=== PATIENT | male | born 1945 | race Caucasian/White ===

== ENCOUNTER 2021-08-10 09:55 | Inpatient (IN) | payer MEDICARE ==
[2021-08-10] MEDS ORDERED: Acetaminophen 325 MG TAB PO PRN (18:14)
[2021-08-10] MEDS ORDERED: Ondansetron PF 4 MG/2 ML Vial IVP PRN (18:14)
[2021-08-10] MEDS ORDERED: Nitroglycerin 0.4 MG TAB (25 Tab Bottle) SL PRN (18:21)
[2021-08-10] MEDS ORDERED: traZODone HCl 50 MG TAB PO PRN (18:21)
[2021-08-10] MEDS ORDERED: HYDROcodone/Acetaminophen 10/325 mg Tablet PO PRN (18:26)
[2021-08-10] MEDS: Senokot S 8.6-50 MG TAB PO SCH (21:14)
[2021-08-10] MEDS: Tamsulosin HCl 0.4 MG CAP PO SCH (21:14)
[2021-08-10] MEDS: Atorvastatin Calcium 40 MG TAB PO SCH (21:14)
[2021-08-10] MEDS: ALPRAZolam 0.25 MG TAB PO PRN (21:14)
[2021-08-11 03:59] LABS: #Eosinphils 0.1 thou/uL (0.0-0.7); #Lymphocytes 1.9 thou/uL (1.20-3.40); #Monocytes 0.9 thou/uL (0.11-0.59); #Neutrophils 4.4 thou/uL (1.40-6.50); %Basophils 0.1 % (0.0-1.0); %Lymphocytes 25.9 % (21.0-51.0); %Monocytes 11.8 % (0.0-10.0); %Neutrophils 61.2 % (42.0-75.0); Hemoglobin 13.6 g/dL (14.0-18.0); Mean Corpuscular HGB CONC 33.5 g/dL (32.0-36.0); Mean Corpuscular Hemoglobin 32.5 pg (27.0-31.0); Mean Corpuscular Volume 97.3 fL (78.0-98.0); Platelet Count 247 thou/uL (130-400); RBC Distribution Width 11.8 % (11.5-14.5); Red Blood Cell (RBC) Count 4.18 mill/uL (4.70-6.10); White Blood Cell (WBC) Count 7.3 thou/uL (4.8-10.8)
[2021-08-11] MEDS: HYDROcodone/Acetaminophen 5/325 mg Tablet PO PRN ×2 (04:21→19:18)
[2021-08-11 04:22] LABS: Anion Gap 13 mmol/L (10-20); BUN (Urea Nitrogen) 13 mg/dL (8.4-25.7); Calc. Creatinine Clearance 88 mL/min (70-130); Calcium 9.6 mg/dL (7.8-10.44); Carbon Dioxide 24 mmol/L (23-31); Chloride 105 mmol/L (98-107); Glucose 115 mg/dL (83-110); Sodium 138 mmol/L (136-145)
[2021-08-11] MEDS ORDERED: Aspirin 81 mg Enteric Coated Tablet PO SCH (09:00)
[2021-08-11] MEDS: Lisinopril 10 MG TAB PO SCH (09:57)
[2021-08-11] MEDS: Senokot S 8.6-50 MG TAB PO SCH ×2 (10:01→19:17)
[2021-08-11] MEDS: ALPRAZolam 0.25 MG TAB PO PRN ×3 (10:01→22:28)
[2021-08-11] MEDS ORDERED: Communication Order-Pharmacy FS SCH (10:45)
[2021-08-11] MEDS: Tamsulosin HCl 0.4 MG CAP PO SCH (19:17)
[2021-08-11] MEDS: Metoprolol Tartrate 25 MG TAB PO SCH (19:17)
[2021-08-11] MEDS: Atorvastatin Calcium 40 MG TAB PO SCH (19:17)
[2021-08-12] MEDS ORDERED: Bisacodyl 5 MG TAB PO PRN (08:41)
[2021-08-12] MEDS ORDERED: Bisacodyl 5 MG TAB PO SCH (08:45)
[2021-08-12] MEDS: Metoprolol Tartrate 25 MG TAB PO SCH ×2 (09:03→21:34)
[2021-08-12] MEDS: Lisinopril 10 MG TAB PO SCH (09:04)
[2021-08-12] MEDS ORDERED: HYDROcodone/Acetaminophen 5/325 mg Tablet PO PRN (14:14)
[2021-08-12] MEDS: ALPRAZolam 0.25 MG TAB PO PRN ×2 (14:44→21:44)
[2021-08-12] MEDS: Tamsulosin HCl 0.4 MG CAP PO SCH (21:34)
[2021-08-12] MEDS: Senokot S 8.6-50 MG TAB PO SCH (21:34)
[2021-08-13] MEDS: Melatonin 3 MG TAB PO PRN ×2 (00:44→21:40)
[2021-08-13] MEDS: ALPRAZolam 0.25 MG TAB PO PRN ×3 (05:37→21:40)
[2021-08-13] MEDS: Senokot S 8.6-50 MG TAB PO SCH ×2 (08:48→21:40)
[2021-08-13] MEDS: Lisinopril 10 MG TAB PO SCH (08:48)
[2021-08-13] MEDS: Metoprolol Tartrate 25 MG TAB PO SCH ×2 (08:48→21:39)
[2021-08-13] MEDS: HYDROcodone/Acetaminophen 10/325 mg Tablet PO PRN ×3 (08:53→21:42)
[2021-08-13] MEDS ORDERED: Aspirin 81 mg Enteric Coated Tablet PO SCH (09:45)
[2021-08-13] MEDS: Tamsulosin HCl 0.4 MG CAP PO SCH (21:40)
[2021-08-14] MEDS: Metoprolol Tartrate 25 MG TAB PO SCH (05:19)
[2021-08-14] MEDS: Lisinopril 10 MG TAB PO SCH (05:19)
[2021-08-14] MEDS ORDERED: Midazolam HCl 2 mg/2 ml Vial ONE (06:23)
[2021-08-14] MEDS ORDERED: fentaNYL Citrate/PF 100 MCG/2 ML SYRINGE ONE (06:23)
[2021-08-14] MEDS ORDERED: niCARdipine 25 MG/10 ML VIAL ONE (06:24)
[2021-08-14] MEDS ORDERED: Phenylephrine 10 MG/ML VIAL ONE (06:24)
[2021-08-14] MEDS ORDERED: PHENYLEPHRINE-NS 100 MCG/ML 10 ML SYRINGE ONE ×2 (06:25→07:16)
[2021-08-14] MEDS ORDERED: Albumin 5% 500 ML ONE (06:30)
[2021-08-14] MEDS ORDERED: Heparin 10,000 UNITS/1 ML VIAL 30,000 UNITS in Sodium Chloride 0.9% 1,000 ML FS SCH (06:45)
[2021-08-14] MEDS ORDERED: hydrALAZINE 20 MG/ML VIAL ONE (07:07)
[2021-08-14] MEDS ORDERED: CEFAZOLIN 2 GM VIAL ONE (07:08)
[2021-08-14] MEDS ORDERED: Sodium Chloride 0.9% 100 ML ONE (07:09)
[2021-08-14] MEDS ORDERED: Heparin 5,000 UNITS/ML VIAL ONE (07:16)
[2021-08-14] MEDS ORDERED: Magnesium Sulfate 1 GM/2 ML VIAL ONE (07:16)
[2021-08-14] MEDS ORDERED: Papaverine 60 MG/2 ML VIAL ONE (07:16)
[2021-08-14] MEDS ORDERED: Mannitol 12.5 GM/50 ML ONE (07:16)
[2021-08-14] MEDS ORDERED: Aminocaproic Acid 5 GM/20 ML VIAL ONE (07:16)
[2021-08-14] MEDS ORDERED: Lidocaine 2% PF 100 mg/5 ml Syringe ONE (07:16)
[2021-08-14] MEDS ORDERED: Rocuronium Bromide 10 MG/ML (10ML VIAL) ONE (07:16)
[2021-08-14] MEDS ORDERED: Sodium Bicarb 50 MEQ/50 ML Abboject 8.4% SYRINGE ONE (07:16)
[2021-08-14] MEDS ORDERED: Lidocaine 1% PF 5 ML VIAL ONE (07:16)
[2021-08-14] MEDS ORDERED: Protamine Sulfate 250 MG/25 ML VIAL ONE (07:16)
[2021-08-14] MEDS ORDERED: Heparin 30,000 units/30 ml VIAL ONE (07:16)
[2021-08-14] MEDS ORDERED: Calcium Chloride 1 GM/10 ML Abboject SYRINGE ONE (07:16)
[2021-08-14] MEDS ORDERED: PROPOFOL 200 MG/20 ML VIAL ONE (07:16)
[2021-08-14] MEDS ORDERED: Cardioplegic Soln 1,000 ML BAG ONE (07:16)
[2021-08-14] MEDS ORDERED: Thrombin 5000 UNITS/5 ML VIAL ONE (07:16)
[2021-08-14] MEDS ORDERED: Vecuronium 10 MG VIAL ONE (07:16)
[2021-08-14] MEDS ORDERED: Heparin 10,000 UNITS/ 10 ML VIAL ONE (08:15)
[2021-08-14] MEDS ORDERED: Aspirin 81 mg Enteric Coated Tablet PO SCH (09:00)
[2021-08-14] MEDS: Senokot S 8.6-50 MG TAB PO SCH (10:19)
[2021-08-14 11:04] LABS: Base Excess (BEa) -0.7 mEq/L (-2.0 to +3.0); CO2 Tension 39.7 mmHg (35.0-45.0); Calcium, Ionized (arterial) 1.11 mmol/L (1.12-1.30); Carboxyhemoglobin (COHb) 0.3 gm% (0.0-3.0); Hemoglobin (Hb) 12.3 g/dL (14.0-18.0); O2 Tension (PaO2), arterial 78.7 mmHg (> 70.0); Potassium - ABG Lab 4.61 mmol/L (3.70-5.30)
[2021-08-14 11:06] LABS: ALV-art Gradient 299.475 mmHg (0-20); Puncture Site Arterial Line
[2021-08-14] MEDS ORDERED: Acetaminophen 325 MG TAB PO PRN (11:07)
[2021-08-14] MEDS ORDERED: Nitroglycerin 50 MG/250 ML BOT 250 ML IVPB PRN (11:07)
[2021-08-14] MEDS ORDERED: hydrALAZINE 20 MG/ML VIAL SLOW IVP PRN (11:07)
[2021-08-14] MEDS ORDERED: niCARdipine 25 MG in Sodium Chloride 0.9% 250 ML 250 ML IVPB PRN (11:07)
[2021-08-14] MEDS ORDERED: Bisacodyl 10 MG SUPP PR PRN (11:07)
[2021-08-14] MEDS ORDERED: Norepinephrine 8 MG/0.9% NS 250 ML IVPB PRN (11:07)
[2021-08-14] MEDS ORDERED: Fentanyl 100 MCG/2 ML VIAL SLOW IVP PRN (11:07)
[2021-08-14] MEDS ORDERED: Post-Op Insulin Drip Protocol IVPB ONE (11:07)
[2021-08-14] MEDS ORDERED: Ondansetron PF 4 MG/2 ML Vial IVP PRN (11:07)
[2021-08-14] MEDS ORDERED: Hetastarch 6% 500 ML 500 ML IVPB PRN (11:07)
[2021-08-14] MEDS ORDERED: Potassium Chloride 20 MEQ/100 ML PREMIX BAG IVPB PRN (11:07)
[2021-08-14] MEDS ORDERED: Bisacodyl 5 MG TAB PO PRN (11:07)
[2021-08-14] MEDS ORDERED: Guaifenesin DM 100-10/5 ML UDCUP PO PRN (11:07)
[2021-08-14] MEDS ORDERED: Mag-Al 1200 mg/1200 mg/30 ML UDCUP PO PRN (11:07)
[2021-08-14] MEDS ORDERED: DOPamine 400 MG/D5W 250 ML 250 ML IVPB PRN (11:07)
[2021-08-14] MEDS ORDERED: Morphine 2 MG/ML VIAL SLOW IVP PRN (11:07)
[2021-08-14] MEDS ORDERED: HUMULIN R 100 UNITS in Sodium Chloride 0.9% 100 ML IVPB SCH (11:15)
[2021-08-14] MEDS ORDERED: Dextrose 50% Abboject 50 ML SYRINGE SLOW IVP PRN (11:15)
[2021-08-14] MEDS ORDERED: Dextrose 5% in Water 1,000 ML IV PRN (11:15)
[2021-08-14 11:16] LABS: #Eosinphils 0.1 thou/uL (0.0-0.7); #Lymphocytes 1.1 thou/uL (1.20-3.40); #Monocytes 0.5 thou/uL (0.11-0.59); #Neutrophils 7.8 thou/uL (1.40-6.50); %Basophils 0.3 % (0.0-1.0); %Eosinophils 1.1 % (0.0-10.0); %Lymphocytes 11.8 % (21.0-51.0); %Monocytes 4.8 % (0.0-10.0); Hemoglobin 11.9 g/dL (14.0-18.0); Mean Corpuscular HGB CONC 32.5 g/dL (32.0-36.0); Mean Corpuscular Hemoglobin 32.3 pg (27.0-31.0); Mean Corpuscular Volume 99.1 fL (78.0-98.0); Mean Platelet Volume 6.9 fL (7.4-10.4); Platelet Count 204 thou/uL (130-400); RBC Distribution Width 11.8 % (11.5-14.5); Red Blood Cell (RBC) Count 3.69 mill/uL (4.70-6.10); White Blood Cell (WBC) Count 9.5 thou/uL (4.8-10.8)
[2021-08-14 11:26] LABS: Glucose 145 mg/dL (83-110)
[2021-08-14] MEDS: Ketorolac Tromethamine 30 MG/ML VIAL IVP SCH ×3 (11:27→23:30)
[2021-08-14] MEDS: Lactated Ringer's 1,000 ML IV SCH (11:27)
[2021-08-14 11:28] LABS: INR-International Normal Ratio 1.2; Prothrombin Time 15.4 sec (12.0-14.7)
[2021-08-14] MEDS: Insulin Regular 300 UNITS/3 ML VIAL SC PRN ×2 (11:28→15:23)
[2021-08-14 11:29] LABS: PTT 33.2 sec (22.9-36.1)
[2021-08-14 11:30] LABS: Anion Gap 12 mmol/L (10-20); BUN (Urea Nitrogen) 8 mg/dL (8.4-25.7); Calc. Creatinine Clearance 99 mL/min (70-130); Calcium 7.9 mg/dL (7.8-10.44); Carbon Dioxide 21 mmol/L (23-31); Chloride 108 mmol/L (98-107); Glucose 146 mg/dL (83-110); Potassium 4.6 mmol/L (3.5-5.1); Sodium 136 mmol/L (136-145)
[2021-08-14 13:20] LABS: Actual Bicarbonate (HCO3a) 18.3 mEq/L (22-28); Calcium, Ionized (arterial) 1.07 mmol/L (1.12-1.30); Carboxyhemoglobin (COHb) 0.3 gm% (0.0-3.0); Hemoglobin (Hb) 12.6 g/dL (14.0-18.0); O2 Tension (PaO2), arterial 82.6 mmHg (> 70.0); Potassium - ABG Lab 3.88 mmol/L (3.70-5.30); pH, Arterial 7.51 (7.35-7.45)
[2021-08-14 13:23] LABS: CO2 Tension 23.6 mmHg (35.0-45.0); Puncture Site Arterial Line
[2021-08-14] MEDS: Fentanyl 100 MCG/2 ML VIAL SLOW IVP PRN (15:03)
[2021-08-14] MEDS: CEFAZOLIN 2 GM in Sodium Chloride 0.9% 100 ML IVPB SCH ×2 (15:04→23:30)
[2021-08-14 16:28] LABS: Hemoglobin 11.8 g/dL (14.0-18.0)
[2021-08-14 16:48] LABS: Potassium 4.2 mmol/L (3.5-5.1)
[2021-08-14] MEDS: Famotidine/PF 20 mg/2ml Vial SLOW IVP SCH (19:54)
[2021-08-14] MEDS: Tamsulosin HCl 0.4 MG CAP PO SCH (19:54)
[2021-08-14] MEDS: HYDROcodone/Acetaminophen 5/325 mg Tablet PO PRN (19:54)
[2021-08-14] MEDS ORDERED: Atorvastatin Calcium 20 MG TAB PO SCH (21:00)
[2021-08-15] MEDS: Lactated Ringer's 1,000 ML IV SCH (00:03)
[2021-08-15 04:13] LABS: #Lymphocytes 1.1 thou/uL (1.20-3.40); #Monocytes 0.7 thou/uL (0.11-0.59); #Neutrophils 5.1 thou/uL (1.40-6.50); %Basophils 0.1 % (0.0-1.0); %Eosinophils 0.6 % (0.0-10.0); %Lymphocytes 16.1 % (21.0-51.0); %Monocytes 9.5 % (0.0-10.0); %Neutrophils 73.8 % (42.0-75.0); Hemoglobin 11.4 g/dL (14.0-18.0); Mean Corpuscular HGB CONC 33.9 g/dL (32.0-36.0); Mean Corpuscular Hemoglobin 33.3 pg (27.0-31.0); Mean Corpuscular Volume 98.4 fL (78.0-98.0); Mean Platelet Volume 6.9 fL (7.4-10.4); Platelet Count 233 thou/uL (130-400); RBC Distribution Width 11.9 % (11.5-14.5); Red Blood Cell (RBC) Count 3.41 mill/uL (4.70-6.10); White Blood Cell (WBC) Count 6.9 thou/uL (4.8-10.8)
[2021-08-15 04:35] LABS: Anion Gap 9 mmol/L (10-20); BUN (Urea Nitrogen) 8 mg/dL (8.4-25.7); Calc. Creatinine Clearance 101 mL/min (70-130); Calcium 8.2 mg/dL (7.8-10.44); Carbon Dioxide 26 mmol/L (23-31); Chloride 107 mmol/L (98-107); Glucose 113 mg/dL (83-110); Potassium 4.1 mmol/L (3.5-5.1); Sodium 138 mmol/L (136-145)
[2021-08-15] MEDS: HYDROcodone/Acetaminophen 5/325 mg Tablet PO PRN ×4 (05:06→20:50)
[2021-08-15] MEDS: Ketorolac Tromethamine 30 MG/ML VIAL IVP SCH ×3 (05:30→17:49)
[2021-08-15] MEDS: Fentanyl 100 MCG/2 ML VIAL SLOW IVP PRN ×3 (05:31→17:08)
[2021-08-15] MEDS: CEFAZOLIN 2 GM in Sodium Chloride 0.9% 100 ML IVPB SCH (06:10)
[2021-08-15] MEDS ORDERED: Aspirin 325 MG TAB PO SCH (09:00)
[2021-08-15] MEDS: Clopidogrel Bisulfate 75 MG TAB PO SCH (10:26)
[2021-08-15] MEDS: Famotidine/PF 20 mg/2ml Vial SLOW IVP SCH (10:26)
[2021-08-15] MEDS: Polyethylene Glycol 3350 17 GM Packet PO SCH (10:27)
[2021-08-15] MEDS ORDERED: Mineral Oil ENEMA PR PRN (10:36)
[2021-08-15] MEDS ORDERED: Nitroglycerin 0.4 MG TAB (25 Tab Bottle) SL PRN (10:36)
[2021-08-15] MEDS ORDERED: Insulin Regular 300 UNITS/3 ML VIAL SC PRN (10:45)
[2021-08-15] MEDS ORDERED: Insulin Glargine 30 UNITS/0.3 ML VIAL SC PRN (11:12)
[2021-08-15 13:09] LABS: Actual Bicarbonate (HCO3a) 23.9 mEq/L (22-28); Analyzer IN Cardio OR; Base Excess (BEa) 0.5 mEq/L (-2.0 to +3.0); CO2 Tension 33.5 mmHg (35.0-45.0); Calcium, Ionized (arterial) 1.02 mmol/L (1.12-1.30); Carboxyhemoglobin (COHb) 0.3 gm% (0.0-3.0); Hemoglobin (Hb) 8.9 g/dL (14.0-18.0); O2 Tension (PaO2), arterial 370.9 mmHg (> 70.0); Potassium - ABG Lab 4.85 mmol/L (3.70-5.30); pH, Arterial 7.47 (7.35-7.45)
[2021-08-15 13:09] LABS: Analyzer IN Cardio OR; CO2 Tension 36.9 mmHg (35.0-45.0); Calcium, Ionized (arterial) 1.14 mmol/L (1.12-1.30); Carboxyhemoglobin (COHb) 0.7 gm% (0.0-3.0); Hemoglobin (Hb) 12.1 g/dL (14.0-18.0); O2 Tension (PaO2), arterial 292.6 mmHg (> 70.0); Potassium - ABG Lab 3.71 mmol/L (3.70-5.30); pH, Arterial 7.43 (7.35-7.45)
[2021-08-15 13:10] LABS: Actual Bicarbonate (HCO3a) 21.5 mEq/L (22-28); Analyzer IN Cardio OR; Base Excess (BEa) -2.6 mEq/L (-2.0 to +3.0); CO2 Tension 35.1 mmHg (35.0-45.0); Calcium, Ionized (arterial) 1.06 mmol/L (1.12-1.30); Carboxyhemoglobin (COHb) 0.3 gm% (0.0-3.0); Hemoglobin (Hb) 11.4 g/dL (14.0-18.0); O2 Tension (PaO2), arterial 82.6 mmHg (> 70.0); Potassium - ABG Lab 4.53 mmol/L (3.70-5.30); pH, Arterial 7.41 (7.35-7.45)
[2021-08-15 13:10] LABS: Puncture Site Arterial Line
[2021-08-15 13:10] LABS: Actual Bicarbonate (HCO3v) 25 mEq/L (22-28); Analyzer IN Cardio OR; Base Excess 0.4 mEq/L (-2.0 to +3.0); Calcium, Ionized (venous) 1.03 mmol/L (1.16-1.32); Chloride (VBG) 105 mmol/L (98-106); Hemoglobin (Hb) 8.7 g/dL (12.6-17.4); pH (venous) 7.41 (7.32-7.43)
[2021-08-15 13:11] LABS: Puncture Site Arterial Line
[2021-08-15 13:11] LABS: Puncture Site Arterial Line
[2021-08-15] MEDS: Famotidine 20 MG TAB PO SCH (20:49)
[2021-08-15] MEDS: Tamsulosin HCl 0.4 MG CAP PO SCH (20:50)
[2021-08-15] MEDS: ALPRAZolam 0.25 MG TAB PO PRN (20:50)
[2021-08-15] MEDS ORDERED: Atorvastatin Calcium 20 MG TAB PO SCH (21:00)
[2021-08-15] MEDS ORDERED: Metoprolol Tartrate 25 MG TAB PO SCH (21:00)
[2021-08-16] MEDS: Ketorolac Tromethamine 30 MG/ML VIAL IVP SCH ×5 (00:08→23:49)
[2021-08-16 04:41] LABS: #Lymphocytes 0.6 thou/uL (1.20-3.40); #Monocytes 0.7 thou/uL (0.11-0.59); #Neutrophils 5.1 thou/uL (1.40-6.50); %Basophils 0.3 % (0.0-1.0); %Eosinophils 0.2 % (0.0-10.0); %Lymphocytes 9.6 % (21.0-51.0); %Monocytes 10.7 % (0.0-10.0); %Neutrophils 79.2 % (42.0-75.0); Hemoglobin 11.9 g/dL (14.0-18.0); Mean Corpuscular HGB CONC 33.8 g/dL (32.0-36.0); Mean Corpuscular Volume 97.7 fL (78.0-98.0); Mean Platelet Volume 6.6 fL (7.4-10.4); Platelet Count 233 thou/uL (130-400); RBC Distribution Width 11.9 % (11.5-14.5); White Blood Cell (WBC) Count 6.4 thou/uL (4.8-10.8)
[2021-08-16 05:02] LABS: Anion Gap 10 mmol/L (10-20); BUN (Urea Nitrogen) 8 mg/dL (8.4-25.7); Calc. Creatinine Clearance 93 mL/min (70-130); Calcium 8.5 mg/dL (7.8-10.44); Carbon Dioxide 26 mmol/L (23-31); Chloride 104 mmol/L (98-107); Glucose 124 mg/dL (83-110); Potassium 3.9 mmol/L (3.5-5.1); Sodium 136 mmol/L (136-145)
[2021-08-16 05:24] VITALS: BMI 26.4
[2021-08-16] MEDS: HYDROcodone/Acetaminophen 5/325 mg Tablet PO PRN ×3 (06:04→23:40)
[2021-08-16] MEDS ORDERED: Amiodarone 150 MG, Admixture Fee 1 EACH in Dextrose 5% in Water 100 ML IVPB SCH (08:15)
[2021-08-16] MEDS: Amiodarone 450 MG, Admixture Fee 1 EACH in Dextrose 5% in Water 250 ML IVPB SCH ×2 (08:31→17:52)
[2021-08-16] MEDS: Aspirin Chewable 81 MG TAB PO SCH (09:59)
[2021-08-16] MEDS: Clopidogrel Bisulfate 75 MG TAB PO SCH (10:00)
[2021-08-16] MEDS: Polyethylene Glycol 3350 17 GM Packet PO SCH (10:00)
[2021-08-16] MEDS: Famotidine 20 MG TAB PO SCH ×2 (10:00→20:56)
[2021-08-16] MEDS: Finasteride 5 MG TAB PO SCH (10:00)
[2021-08-16] MEDS: Furosemide 40 MG TAB PO SCH (10:00)
[2021-08-16] MEDS: Metoprolol Tartrate 25 MG TAB PO SCH ×2 (10:04→22:12)
[2021-08-16] MEDS: Tamsulosin HCl 0.4 MG CAP PO SCH (20:55)
[2021-08-16] MEDS: Atorvastatin Calcium 40 MG TAB PO SCH (20:55)
[2021-08-16] MEDS: ALPRAZolam 0.25 MG TAB PO PRN (20:56)
[2021-08-17 04:23] LABS: #Eosinphils 0.1 thou/uL (0.0-0.7); #Lymphocytes 0.8 thou/uL (1.20-3.40); #Monocytes 0.6 thou/uL (0.11-0.59); #Neutrophils 3.8 thou/uL (1.40-6.50); %Basophils 0.3 % (0.0-1.0); %Lymphocytes 14.6 % (21.0-51.0); %Monocytes 11.1 % (0.0-10.0); Hemoglobin 11.3 g/dL (14.0-18.0); Mean Corpuscular HGB CONC 33.2 g/dL (32.0-36.0); Mean Corpuscular Hemoglobin 32.6 pg (27.0-31.0); Mean Corpuscular Volume 98.3 fL (78.0-98.0); Mean Platelet Volume 6.8 fL (7.4-10.4); Platelet Count 261 thou/uL (130-400); RBC Distribution Width 11.7 % (11.5-14.5); Red Blood Cell (RBC) Count 3.47 mill/uL (4.70-6.10); White Blood Cell (WBC) Count 5.2 thou/uL (4.8-10.8)
[2021-08-17 04:33] LABS: Anion Gap 11 mmol/L (10-20); BUN (Urea Nitrogen) 10 mg/dL (8.4-25.7); Calc. Creatinine Clearance 88 mL/min (70-130); Calcium 8.5 mg/dL (7.8-10.44); Carbon Dioxide 28 mmol/L (23-31); Chloride 102 mmol/L (98-107); Glucose 126 mg/dL (83-110); Potassium 3.8 mmol/L (3.5-5.1); Sodium 137 mmol/L (136-145)
[2021-08-17] MEDS: Ketorolac Tromethamine 30 MG/ML VIAL IVP SCH ×2 (06:09→15:17)
[2021-08-17] MEDS: Finasteride 5 MG TAB PO SCH (08:00)
[2021-08-17] MEDS: Furosemide 40 MG TAB PO SCH (08:00)
[2021-08-17] MEDS: Metoprolol Tartrate 25 MG TAB PO SCH ×2 (08:00→21:00)
[2021-08-17] MEDS: Amiodarone 200 MG TAB PO SCH ×2 (08:00→21:00)
[2021-08-17] MEDS: Clopidogrel Bisulfate 75 MG TAB PO SCH (08:00)
[2021-08-17] MEDS: Famotidine 20 MG TAB PO SCH ×2 (08:00→21:00)
[2021-08-17] MEDS: Aspirin Chewable 81 MG TAB PO SCH (08:00)
[2021-08-17] MEDS: HYDROcodone/Acetaminophen 5/325 mg Tablet PO PRN ×3 (08:01→21:01)
[2021-08-17] MEDS: Polyethylene Glycol 3350 17 GM Packet PO SCH (08:01)
[2021-08-17] MEDS: Tamsulosin HCl 0.4 MG CAP PO SCH (21:00)
[2021-08-17] MEDS: Atorvastatin Calcium 40 MG TAB PO SCH (21:00)
[2021-08-17] MEDS: ALPRAZolam 0.25 MG TAB PO PRN (21:01)
[2021-08-17] MEDS ORDERED: Melatonin 3 MG TAB PO PRN (23:54)
[2021-08-18] MEDS ORDERED: ALPRAZolam 0.25 MG TAB PO SCH (00:16)
[2021-08-18] MEDS: HYDROcodone/Acetaminophen 5/325 mg Tablet PO PRN ×3 (00:35→20:31)
[2021-08-18] MEDS: Amiodarone 200 MG TAB PO SCH ×2 (09:35→20:30)
[2021-08-18] MEDS: Finasteride 5 MG TAB PO SCH (09:35)
[2021-08-18] MEDS: Furosemide 40 MG TAB PO SCH (09:35)
[2021-08-18] MEDS: Aspirin Chewable 81 MG TAB PO SCH (09:35)
[2021-08-18] MEDS: Clopidogrel Bisulfate 75 MG TAB PO SCH (09:36)
[2021-08-18] MEDS: Famotidine 20 MG TAB PO SCH ×2 (09:36→20:31)
[2021-08-18] MEDS: Metoprolol Tartrate 25 MG TAB PO SCH ×2 (09:36→20:31)
[2021-08-18] MEDS: Polyethylene Glycol 3350 17 GM Packet PO SCH (09:37)
[2021-08-18 10:40] LABS: Bacteria/HPF None Seen HPF (None Seen); RBC/HPF 0-3 HPF (0-3); Squamous Epithelial None Seen HPF (0-3); WBC/HPF 0-3 HPF (0-3)
[2021-08-18] MEDS: cefTRIAXone\\ROCEPHIN 2 GM in Sodium Chloride 0.9% 100 ML IVPB SCH (12:31)
[2021-08-18] MEDS ORDERED: traZODone HCl 50 MG TAB PO PRN (16:53)
[2021-08-18] MEDS: Atorvastatin Calcium 40 MG TAB PO SCH (20:30)
[2021-08-18] MEDS: Tamsulosin HCl 0.4 MG CAP PO SCH (20:31)
[2021-08-18] MEDS: ALPRAZolam 0.25 MG TAB PO PRN (23:42)
[2021-08-19 04:35] LABS: #Eosinphils 0.2 thou/uL (0.0-0.7); #Lymphocytes 1.3 thou/uL (1.20-3.40); #Monocytes 0.4 thou/uL (0.11-0.59); #Neutrophils 1.5 thou/uL (1.40-6.50); %Basophils 0.5 % (0.0-1.0); %Eosinophils 4.8 % (0.0-10.0); %Lymphocytes 39.5 % (21.0-51.0); %Monocytes 11.1 % (0.0-10.0); %Neutrophils 44.1 % (42.0-75.0); Hemoglobin 12.1 g/dL (14.0-18.0); Mean Corpuscular HGB CONC 33.4 g/dL (32.0-36.0); Mean Corpuscular Hemoglobin 32.6 pg (27.0-31.0); Mean Corpuscular Volume 97.7 fL (78.0-98.0); Mean Platelet Volume 6.1 fL (7.4-10.4); Platelet Count 318 thou/uL (130-400); RBC Distribution Width 11.9 % (11.5-14.5); Red Blood Cell (RBC) Count 3.72 mill/uL (4.70-6.10); White Blood Cell (WBC) Count 3.4 thou/uL (4.8-10.8)
[2021-08-19] MEDS: Famotidine 20 MG TAB PO SCH ×2 (08:47→20:31)
[2021-08-19] MEDS: Finasteride 5 MG TAB PO SCH (08:48)
[2021-08-19] MEDS: Clopidogrel Bisulfate 75 MG TAB PO SCH (08:48)
[2021-08-19] MEDS: Metoprolol Tartrate 25 MG TAB PO SCH ×2 (08:48→20:31)
[2021-08-19] MEDS: Furosemide 40 MG TAB PO SCH (08:48)
[2021-08-19] MEDS: Amiodarone 200 MG TAB PO SCH ×2 (08:48→20:31)
[2021-08-19] MEDS: Aspirin Chewable 81 MG TAB PO SCH (08:48)
[2021-08-19] MEDS: Enoxaparin Sodium 40 MG/0.4 ML SYRINGE SC SCH (08:49)
[2021-08-19] MEDS: HYDROcodone/Acetaminophen 5/325 mg Tablet PO PRN ×3 (09:00→18:44)
[2021-08-19] MEDS: Polyethylene Glycol 3350 17 GM Packet PO SCH (09:04)
[2021-08-19 09:44] LABS: Lactic Acid 1.2 mmol/L (0.5-2.2)
[2021-08-19] MEDS: cefTRIAXone\\ROCEPHIN 2 GM in Sodium Chloride 0.9% 100 ML IVPB SCH (13:24)
[2021-08-19] MEDS: Tamsulosin HCl 0.4 MG CAP PO SCH (20:31)
[2021-08-19] MEDS: Atorvastatin Calcium 40 MG TAB PO SCH (20:31)
[2021-08-19] MEDS: ALPRAZolam 0.25 MG TAB PO PRN (23:42)
[2021-08-20 04:27] LABS: #Eosinphils 0.2 thou/uL (0.0-0.7); #Lymphocytes 1.4 thou/uL (1.20-3.40); #Monocytes 0.4 thou/uL (0.11-0.59); #Neutrophils 1.8 thou/uL (1.40-6.50); %Basophils 0.4 % (0.0-1.0); %Eosinophils 4.9 % (0.0-10.0); %Lymphocytes 37.7 % (21.0-51.0); %Monocytes 10.7 % (0.0-10.0); %Neutrophils 46.2 % (42.0-75.0); Hemoglobin 11.9 g/dL (14.0-18.0); Mean Corpuscular HGB CONC 33.8 g/dL (32.0-36.0); Mean Corpuscular Hemoglobin 32.8 pg (27.0-31.0); Mean Corpuscular Volume 97.2 fL (78.0-98.0); Mean Platelet Volume 6.2 fL (7.4-10.4); Platelet Count 333 thou/uL (130-400); RBC Distribution Width 11.8 % (11.5-14.5); Red Blood Cell (RBC) Count 3.62 mill/uL (4.70-6.10); White Blood Cell (WBC) Count 3.8 thou/uL (4.8-10.8)
[2021-08-20] MEDS: HYDROcodone/Acetaminophen 5/325 mg Tablet PO PRN (07:17)
[2021-08-20 08:33] LABS: Anion Gap 13 mmol/L (10-20); BUN (Urea Nitrogen) 11 mg/dL (8.4-25.7); Calc. Creatinine Clearance 72 mL/min (70-130); Calcium 9.5 mg/dL (7.8-10.44); Carbon Dioxide 30 mmol/L (23-31); Chloride 101 mmol/L (98-107); Glucose 108 mg/dL (83-110); Potassium 3.9 mmol/L (3.5-5.1); Sodium 140 mmol/L (136-145)
[2021-08-20] MEDS: Amiodarone 200 MG TAB PO SCH (10:01)
[2021-08-20] MEDS: Clopidogrel Bisulfate 75 MG TAB PO SCH (10:02)
[2021-08-20] MEDS: Famotidine 20 MG TAB PO SCH (10:02)
[2021-08-20] MEDS: Enoxaparin Sodium 40 MG/0.4 ML SYRINGE SC SCH (10:02)
[2021-08-20] MEDS: Aspirin Chewable 81 MG TAB PO SCH (10:02)
[2021-08-20] MEDS: Finasteride 5 MG TAB PO SCH (10:03)
[2021-08-20] MEDS: Metoprolol Tartrate 25 MG TAB PO SCH (10:03)
[2021-08-20] MEDS: Polyethylene Glycol 3350 17 GM Packet PO SCH (10:04)
[2021-08-20 12:03] VITALS: BP 114/73; TEMP 98.7
[2021-08-20] MEDS: cefTRIAXone\\ROCEPHIN 2 GM in Sodium Chloride 0.9% 100 ML IVPB SCH (13:20)
== END 2021-08-20 13:15 | disposition home or self-care (01) | DRG 236 ==
LOC: 2NO 09:55 → CCU 08-14 06:29 → 2NO 08-17 13:27
PROVIDERS: ADMIT Thoracic Surgery (Cardiothoracic Vascular Surgery); ATTEND Internal Medicine
PROC: 021109W Bypass Coronary Artery, Two Arteries from Aorta with Autologous Venous Tissue, Open Approach (ICD-10-PCS; principal; 2021-08-14)
PROC: 02100Z9 Bypass Coronary Artery, One Artery from Left Internal Mammary, Open Approach (ICD-10-PCS; 2021-08-14)
PROC: 06BQ3ZZ Excision of Left Saphenous Vein, Percutaneous Approach (ICD-10-PCS; 2021-08-14)
PROC: 5A1221Z Performance of Cardiac Output, Continuous (ICD-10-PCS; 2021-08-14)
PROC: 02L70CK Occlusion of Left Atrial Appendage with Extraluminal Device, Open Approach (ICD-10-PCS; 2021-08-14)
DX: I21.19 ST elevation (STEMI) myocardial infarction involving other coronary artery of inferior wall (principal); J98.11 Atelectasis; I25.10 Atherosclerotic heart disease of native coronary artery without angina pectoris; G89.29 Other chronic pain; M54.50 Low back pain, unspecified; I10 Essential (primary) hypertension; N40.0 Benign prostatic hyperplasia without lower urinary tract symptoms; I48.0 Paroxysmal atrial fibrillation; I21.11 ST elevation (STEMI) myocardial infarction involving right coronary artery; E78.5 Hyperlipidemia, unspecified; M19.90 Unspecified osteoarthritis, unspecified site; F17.290 Nicotine dependence, other tobacco product, uncomplicated; F41.9 Anxiety disorder, unspecified; Z96.642 Presence of left artificial hip joint; Z95.5 Presence of coronary angioplasty implant and graft; Z79.899 Other long term (current) drug therapy; Z79.82 Long term (current) use of aspirin; Z98.1 Arthrodesis status; Z82.3 Family history of stroke; Z82.0 Family history of epilepsy and other diseases of the nervous system; Z98.890 Other specified postprocedural states
CPT/HCPCS: 36415; 36416; 36430; 71045; 80048; 81015; 82805; 83605; 84145; 85025; 85610; 85730; 86850; 86900; 86901; 87040; 87071; 87086; 93005; 93010; 93306; 93798; 94002; 94003; 94150; 97139; C1751; C1776; J0282; J0360; J0696; J1644; J1650; J1815; J1885; J2001; J2150; J2250; J2270; J2370; J2405; J2440; J2704; J2720; J3010; J3370; J3475; J3480; J3490; J7070; J7120; P9045; S0017; S0028

== ENCOUNTER 2022-08-08 08:06 | Outpatient (CLI) | payer OTHER | END 2022-08-08 08:07 | disposition home or self-care (01) | LOC: NM 08:06 | PROVIDERS: ATTEND Family Medicine | DX: E21.5 Disorder of parathyroid gland, unspecified (principal); D35.1 Benign neoplasm of parathyroid gland | CPT/HCPCS: 78072; A9500 ==

== ENCOUNTER 2024-01-08 12:42 | Outpatient (CLI) | payer OTHER | END 2024-01-08 12:43 | disposition home or self-care (01) | LOC: SCSRAD 12:42 | PROVIDERS: ATTEND Family Medicine | DX: M25.512 Pain in left shoulder (principal); M75.92 Shoulder lesion, unspecified, left shoulder ==

== ENCOUNTER 2024-03-19 12:04 | Outpatient (CLI) | payer OTHER | END 2024-03-19 12:05 | disposition home or self-care (01) | LOC: CT 12:04 | PROVIDERS: ATTEND Family Medicine | DX: R13.10 Dysphagia, unspecified (principal); D35.1 Benign neoplasm of parathyroid gland; E04.1 Nontoxic single thyroid nodule | CPT/HCPCS: 70492 ==

== ENCOUNTER 2024-05-07 13:16 | Outpatient (CLI) | payer OTHER | END 2024-05-07 13:17 | disposition home or self-care (01) | LOC: BICULT 13:16 | PROVIDERS: ATTEND Family Medicine | DX: E04.1 Nontoxic single thyroid nodule (principal) | CPT/HCPCS: 76536 ==